=== PATIENT | male | born 1970 | race Caucasian/White ===

== ENCOUNTER 2017-02-27 10:09 | Emergency (ER) | payer BC ==
[2017-02-27 10:16] VITALS: BP 142/67
[2017-02-27] MEDS ORDERED: Proparacaine 0.5% Ophth Soln 15 ML Bottle EYERT ONE (10:33)
[2017-02-27] MEDS ORDERED: Benoxinate/Fluorescein 0.4-0.25% Ophth Soln 5 ML Bottle EYERT ONE (10:34)
--- NOTE | 2017-02-27 10:59 | EDM.PDOC ---
ED HPI GENERAL MEDICAL PROBLEM - General Chief Complaint: Eye Problems Stated Complaint: FB IN RIGHT EYE Time Seen by Provider: 02/27/17 10:22 Source of Information: Reports: Patient History Limitations: Reports: No Limitations - History of Present Illness INITIAL COMMENTS - FREE TEXT/NARRATIVE: The patient presents with right eye FB. The patient was out working on his truck and week eating yesterday. His eye was irritated through the night. He has no vision changes. Onset: Gradual Duration: Day(s): (Yesterday) Location: Reports: Face (Right eye) Quality: Reports: Ache Severity: Moderate Improves with: Reports: None Worsens with: Reports: None Associated Symptoms: Reports: No Other Symptoms Right Eye Pain Score (Numeric/FACES): 1 - Related Data Allergies Allergy/AdvReac Type Severity Reaction Status Date / Time No Known Allergies Allergy Verified 02/27/17 10:16 Home Meds: Home Meds Ciprofloxacin [IJD: Ciloxan 0.3% Ophth Soln] 1 drop EYERT .EVERY 4 HOURS #5 ml 02/27/17 [Rx] Past Medical History - Past Surgical History HEENT Surgical History: Reports: Tonsillectomy GI Surgical History: Reports: Appendectomy ED ROS GENERAL - Review of Systems Review Of Systems: See Below Constitutional: Reports: No Symptoms HEENT: Reports: Eye Pain Respiratory: Reports: No Symptoms Cardiovascular: Reports: No Symptoms Endocrine: Reports: No Symptoms GI/Abdominal: Reports: No Symptoms : Reports: No Symptoms Musculoskeletal: Reports: No Symptoms Skin: Reports: No Symptoms ED EXAM GENERAL W FULL EYE - Physical Exam Exam: See Below Exam Limited By: No Limitations General Appearance: Alert, No Apparent Distress Eye Exam: Right Eye: Conjunctival Injection, Corneal Abrasion, Foreign Body ( Rust ring), Bilateral Eye: PERRL Visual Acuity (R) 20/: 20 Visual Acuity (L) 20/: 30 With Correction: No Eyelids: Bilateral: Normal Appearance Conjunctiva & Sclera: Right: Conjunctival Edema Cornea Exam: Right: Corneal Abrasion, Foreign Body (Rust ring) Extraocular Movements: Bilateral: Intact Pupillary Size: Bilateral: 4 mm Pupillary Reaction: Bilateral: Brisk ED EYE w/ Add Procedure - Eye Procedure Alcaine Drops Administered: Yes Eye FB Removal: Other (Removed rust ring with drill) Course - Vital Signs Last Recorded V/S: Last Vital Signs Temp 97.2 F 02/27/17 10:12 Pulse 71 02/27/17 10:12 Resp 16 02/27/17 10:12 BP 142/67 H 02/27/17 10:12 Pulse Ox 98 02/27/17 10:12 - Orders/Labs/Meds Meds: Medications Discontinued Medications Generic Name Dose Route Start Last Admin Trade Name Laisha PRN Reason Stop Dose Admin Fluorescein Sodium/Benoxinate HCl 1 ml 02/27/17 10:34 Fluress Ophth Soln EYERT 02/27/17 10:35 ONETIME ONE Proparacaine HCl 1 ml 02/27/17 10:33 Proparacaine 0.5% Ophth Soln EYERT 02/27/17 10:34 ONETIME ONE - Re-Assessments/Exams Free Text/Narrative Re-Assessment/Exam: 02/27/17 11:00 The FB was removed by the clinic. I used our eye drill to remove the rust ring. I will get him on some cipro drops and some hydrocodone for pain. Departure - Departure Time of Disposition: 11:05 Disposition: Home, Self-Care 01 Condition: good Clinical Impression: Corneal rust ring of right eye Corneal abrasion Qualifiers: Encounter type: initial encounter Laterality: right Qualified Code(s): S05.01XA - Injury of conjunctiva and corneal abrasion without foreign body, right eye, initial encounter Corneal FB (foreign body) Qualifiers: Encounter type: initial encounter Laterality: right Qualified Code(s): T15.01XA - Foreign body in cornea, right eye, initial encounter - Discharge Information Prescriptions: Ciprofloxacin [IJD: Ciloxan 0.3% Ophth Soln] 1 drop EYERT .EVERY 4 HOURS #5 ml Forms: ED Department Discharge Additional Instructions: Use the cipro drops 1 drop in the right eye every 4 hours while awake for 2 days. Take the hydrocodone as needed for pain. Follow up with an eye doctor in [facility] if you are not better in 3 days.
== END 2017-02-27 11:15 | disposition home or self-care (01) ==
LOC: JD.ED 10:09
DX: T15.01XA Foreign body in cornea, right eye, initial encounter (principal); Z98.890 Other specified postprocedural states; Z90.49 Acquired absence of other specified parts of digestive tract; X58.XXXA Exposure to other specified factors, initial encounter
CPT/HCPCS: 65220; 99283; 99283-25

== ENCOUNTER 2017-08-08 09:27 | Emergency (ER) | payer OTHER, BC ==
[2017-08-08 09:39] VITALS: BP 144/79
[2017-08-08] MEDS ORDERED: Sodium Chloride 0.9% 1,000 ML IRR ONE (10:30)
[2017-08-08] MEDS ORDERED: Sodium Chloride 0.9% 1,000 ML IV ONE (11:47)
--- NOTE | 2017-08-08 11:48 | EDM.PDOC ---
ED HPI GENERAL MEDICAL PROBLEM - General Chief Complaint: Eye Problems Stated Complaint: ACID IN R EYE Time Seen by Provider: 08/08/17 09:51 Source of Information: Reports: Patient, RN Notes Reviewed - History of Present Illness INITIAL COMMENTS - FREE TEXT/NARRATIVE: 46-year-old male comes and having had acid splatter to the right eye. He does drive cement truck. He was cleaning his truck with an acid-based solution. Somehow some of this did manage to splatter under ejective eyewear with contact to the right eye. He was able to wash the eye right away with water. He does have continued moderate irritation and discomfort of the right eye. No other pain or injury from this incident. Right Eye Pain Score (Numeric/FACES): 4 - Related Data Allergies Allergy/AdvReac Type Severity Reaction Status Date / Time No Known Allergies Allergy Verified 08/08/17 09:40 Home Meds: Home Meds . [No Known Home Meds] 08/08/17 [History] Past Medical History - Past Surgical History HEENT Surgical History: Reports: Tonsillectomy GI Surgical History: Reports: Appendectomy Social & Family History - Tobacco Use Smoking Status *Q: Never Smoker - Caffeine Use Caffeine Use: Reports: Coffee - Recreational Drug Use Recreational Drug Use: No ED ROS GENERAL - Review of Systems Review Of Systems: See Below Constitutional: Reports: No Symptoms HEENT: Reports: Eye Pain Respiratory: Denies: Shortness of Breath, Wheezing Cardiovascular: Denies: Chest Pain GI/Abdominal: Denies: Abdominal Pain, Nausea, Vomiting Musculoskeletal: Reports: No Symptoms Skin: Reports: No Symptoms, Other (No skin discomfort). Denies: Rash, Erythema Neurological: Denies: Numbness, Tingling ED EXAM GENERAL W FULL EYE - Physical Exam Exam: See Below General Appearance: Alert, No Apparent Distress Eye Exam: Right Eye: Conjunctival Injection (Mild to moderate right-sided), Bilateral Eye: PERRL Visual Acuity (R) 20/: 40 Visual Acuity (L) 20/: 20 Cornea Exam: Bilateral: Normal Appearance Extraocular Movements: Bilateral: Intact Pupils: Normal Accommodation Anterior Chamber: Bilateral: Normal Appearance Throat/Mouth: Normal Inspection Head: Atraumatic. No: Facial Swelling Neck: Supple Respiratory/Chest: No Respiratory Distress, Lungs Clear Cardiovascular: Regular Rate, Rhythm Neurological: Alert, Oriented, No Motor/Sensory Deficits Skin Exam: Warm, Dry, Normal Color, No Rash, Other (No area of injury to the face). No: Erythema Course - Vital Signs Last Recorded V/S: Last Vital Signs Temp 98.1 F 08/08/17 09:34 Pulse 66 08/08/17 09:34 Resp 13 08/08/17 09:34 BP 144/79 H 08/08/17 09:34 Pulse Ox 97 08/08/17 09:34 - Orders/Labs/Meds Orders: Active Orders 24 hr Category Date Time Status Eye Irrigation [RC] ASDIRECTED Care 08/08/17 10:00 Active Meds: Medications Discontinued Medications Generic Name Dose Route Start Last Admin Trade Name Freq PRN Reason Stop Dose Admin Sodium Chloride 1,000 mls @ 999 mls/hr 08/08/17 11:47 08/08/17 11:58 Normal Saline IV 08/08/17 12:47 999 mls/hr ONETIME ONE Administration - Re-Assessments/Exams Free Text/Narrative Re-Assessment/Exam: 08/08/17 17:54. I was irrigated with 500 mL normal saline 2, he continued to have very mild eye irritation status post irrigation. No evidence for corneal injury. Discharge instructions as documented Departure - Departure Time of Disposition: 11:46 Disposition: Home, Self-Care 01 Condition: Fair Clinical Impression: Conjunctivitis Qualifiers: Conjunctivitis type: acute Acute conjunctivitis type: unspecified Laterality: right Qualified Code(s): H10.31 - Unspecified acute conjunctivitis, right eye - Discharge Information Instructions: Chemical Conjunctivitis, [id number] Referrals: PCP,None [Primary Care Provider] - Forms: ED Department Discharge, ED Return to Work/School Form Additional Instructions: Rest I, it is expected that the inflamation will clear over the next 24-48 hours, you may alternate Tylenol and ibuprofen if needed, see eye doctor if symptoms have not completely resolved by Tuesday as planned, return to ED if symptoms worsening in any way. - My Orders Last 24 Hours: My Active Orders 08/08/17 10:00 Eye Irrigation [RC] ASDIRECTED - Assessment/Plan Last 24 Hours: My Active Orders 08/08/17 10:00 Eye Irrigation [RC] ASDIRECTED
== END 2017-08-08 11:57 | disposition home or self-care (01) ==
LOC: JD.ED 09:27
DX: H10.31 Unspecified acute conjunctivitis, right eye (principal)
CPT/HCPCS: 99283; J7040

== ENCOUNTER 2021-03-29 22:25 | Emergency (ER) | payer BC, OTHER ==
[2021-03-29 22:35] VITALS: BP 162/92; PULSE 71
--- NOTE | 2021-03-29 23:08 | EDM.PDOC ---
ED HPI GENERAL MEDICAL PROBLEM - General Chief Complaint: Eye Problems Stated Complaint: SOMETHING IN LEFT EYE Time Seen by Provider: 03/29/21 22:43 Source of Information: Reports: Patient, RN Notes Reviewed - History of Present Illness INITIAL COMMENTS - FREE TEXT/NARRATIVE: FB sensation L eye. Was working out doors with weed eater yesterday, no sx at that time. Also did do some recent grinding but also no sx at that time. Does not wear contacts. Left Eye Pain Score (Numeric/FACES): 10 - Related Data Allergies Allergy/AdvReac Type Severity Reaction Status Date / Time No Known Allergies Allergy Verified 03/29/21 22:35 Home Meds: Home Meds . [No Known Home Meds] 08/08/17 [History] Past Medical History - Past Surgical History HEENT Surgical History: Reports: Tonsillectomy GI Surgical History: Reports: Appendectomy Social & Family History - Tobacco Use Tobacco Use Status *Q: Never Tobacco User - Caffeine Use Caffeine Use: Reports: Coffee, Soda, Tea - Recreational Drug Use Recreational Drug Use: No ED ROS GENERAL - Review of Systems Review Of Systems: See Below Constitutional: Reports: No Symptoms HEENT: Reports: Other (FB sensation, discomfort L eye) Respiratory: Reports: No Symptoms Cardiovascular: Reports: No Symptoms GI/Abdominal: Reports: No Symptoms Skin: Reports: No Symptoms Neurological: Reports: No Symptoms ED EXAM GENERAL W FULL EYE - Physical Exam Exam: See Below General Appearance: Alert, No Apparent Distress Eye Exam: Bilateral Eye: PERRL Eyelids: Bilateral: Normal Appearance Conjunctiva & Sclera: Left: Injected (mild) Cornea Exam: Left: Foreign Body (small, dark, mid cornea) Pupils: Normal Accommodation Pupillary Reaction: Bilateral: Brisk Head: Atraumatic Neck: Supple Respiratory/Chest: No Respiratory Distress Neurological: Alert, Oriented, No Motor/Sensory Deficits Skin Exam: Warm, Dry, Normal Color, No Rash ED EYE w/ Add Procedure - Eye Procedure Alcaine Drops Administered: Yes Eye FB Removal: Other (eye spud) Progress: Small metallic FB removed with eye spud. He does have an underlying rust ring central L cornea. because that is so close to the center of his cornea I am recomending that he have removal of that in a day or 2 by his regular Special Needs Babysitter. Discharge instr. as documented. Course - Vital Signs Last Recorded V/S: Last Vital Signs Temp 97.2 F 03/29/21 22:33 Pulse 71 03/29/21 22:33 Resp 16 03/29/21 22:33 BP 162/92 H 03/29/21 22:33 Pulse Ox 97 03/29/21 22:33 Departure - Departure Time of Disposition: 23:05 Disposition: Home, Self-Care 01 Condition: Fair Clinical Impression: Foreign body, eye Qualifiers: Encounter type: initial encounter Laterality: left Qualified Code(s): T15.92XA - Foreign body on external eye, part unspecified, left eye, initial encounter - Discharge Information Instructions: Eye Foreign Body, [id number] Referrals: PCP,None [Primary Care Provider] - Forms: ED Department Discharge Additional Instructions: Tylenol or ibuprofen as needed. See your Special Needs Babysitter tomorrow or Tuesday to get rust ring removed. Call in AM for appointment. Because that is in the center part of your cornea that could interfer with your visual acuity if not removed. Return to ED as needed if unable to get that done. Sepsis Event Note (ED) - Evaluation Sepsis Screening Result: No Definite Risk - Focused Exam Vital Signs: Vital Signs Temp Pulse Resp BP Pulse Ox 03/29/21 22:33 97.2 F 71 16 162/92 H 97
== END 2021-03-29 23:34 | disposition home or self-care (01) ==
LOC: JD.ED 22:25
DX: T15.02XA Foreign body in cornea, left eye, initial encounter (principal)
CPT/HCPCS: 65205; 65220; 99282; 99283-25

== ENCOUNTER 2021-08-11 09:22 | Emergency (ER) | payer OTHER ==
[2021-08-11 09:50] VITALS: BP 141/76; PULSE 84
[2021-08-11] MEDS ORDERED: Ondansetron 4 MG/2 ML SDV IVPUSH ONE (10:01)
[2021-08-11] MEDS ORDERED: Sodium Chloride 0.9% 10 ML Syringe FLUSH PRN (10:01)
[2021-08-11] MEDS ORDERED: Ketorolac 30 MG/ML SDV IVPUSH ONE (10:03)
[2021-08-11] MEDS ORDERED: Sodium Chloride 0.9% 1,000 ML IV SCH (10:15)
--- NOTE | 2021-08-11 10:17 | EDM.PDOC ---
ED HPI GENERAL MEDICAL PROBLEM - General Chief Complaint: Respiratory Problem Stated Complaint: COVID+ LOW OXYGEN\COUGH\VOMITING Time Seen by Provider: 08/11/21 09:43 Source of Information: Reports: Patient History Limitations: Reports: No Limitations - History of Present Illness INITIAL COMMENTS - FREE TEXT/NARRATIVE: The patient presents with COVID 19, shortness of breath, cough, body aches and generalized weakness. He was diagnosed with COVID 19 on the but he started having symptoms 11 days ago. He is not able to eat or drink anything. He has nausea but no vomiting. He has diarrhea. He has no medical problems like asthma, COPD, heart disease, hypertension or hypercholesterolemia. He does not smoke. His oxygen saturations were in the 80s. Onset: Gradual Duration: Day(s): (11) Location: Reports: Generalized Quality: Reports: Ache Severity: Moderate Improves with: Reports: None Worsens with: Reports: None Associated Symptoms: Reports: Cough, Fever/Chills, Nausea/Vomiting, Shortness of Breath. Denies: Chest Pain, Headaches Generalized Pain Score (Numeric/FACES): 10 - Related Data Allergies Allergy/AdvReac Type Severity Reaction Status Date / Time No Known Allergies Allergy Verified 03/29/21 22:35 Home Meds: Home Meds Albuterol [Proventil HFA] 2 puff INH Q4H PRN #1 inhaler 08/11/21 [Rx] Codeine/Promethazine [Phenergan with Codeine] 5 - 10 ml PO Q6HR PRN #300 ml 08/11/21 [Rx] Ondansetron [Zofran ODT] 4 mg PO Q6H PRN #20 tab.dis 08/11/21 [Rx] dexAMETHasone [Dexamethasone] 6 mg PO Q6H #12 tab 08/11/21 [Rx] Past Medical History - Past Surgical History HEENT Surgical History: Reports: Tonsillectomy GI Surgical History: Reports: Appendectomy Social & Family History - Caffeine Use Caffeine Use: Reports: Coffee, Soda, Tea ED ROS GENERAL - Review of Systems Review Of Systems: See Below Constitutional: Reports: Fever, Chills, Malaise, Weakness, Fatigue HEENT: Reports: No Symptoms Respiratory: Reports: Shortness of Breath, Cough Cardiovascular: Reports: No Symptoms Endocrine: Reports: No Symptoms GI/Abdominal: Reports: Diarrhea, Nausea. Denies: Abdominal Pain, Vomiting : Reports: No Symptoms Musculoskeletal: Reports: Muscle Pain ED EXAM, GENERAL - Physical Exam Exam: See Below Exam Limited By: No Limitations General Appearance: Alert, No Apparent Distress Ears: Normal External Exam Nose: Normal Inspection Head: Atraumatic, Normocephalic Neck: Normal Inspection Respiratory/Chest: No Respiratory Distress, Decreased Breath Sounds Cardiovascular: Regular Rate, Rhythm, No Edema, No Murmur GI/Abdominal: Soft, Non-Tender, No Organomegaly, No Mass Back Exam: Normal Inspection Course - Vital Signs Last Recorded V/S: Last Vital Signs Temp 98.5 F 08/11/21 09:41 Pulse 84 08/11/21 09:41 Resp 18 08/11/21 09:41 BP 141/76 H 08/11/21 09:41 Pulse Ox 88 L 08/11/21 11:55 - Orders/Labs/Meds Orders: Active Orders 24 hr Category Date Time Status Cardiac Monitoring [RC] . DIRECTED Care 08/11/21 10:01 Active Oxygen Therapy [RC] PRN Care 08/11/21 10:01 Active Peripheral IV Care [RC] . DIRECTED Care 08/11/21 10:01 Active Sodium Chloride 0.9% [Normal Saline] 1,000 ml Med 08/11/21 10:15 Active IV .BOLUS Sodium Chloride 0.9% [Saline Flush] Med 08/11/21 10:01 Active 10 ml FLUSH ASDIRECTED PRN ED Antiemetic Medication Reflex [OM.PC] Stat Oth 08/11/21 10:02 Ordered Peripheral IV Insertion Adult [OM.PC] Stat Oth 08/11/21 10:01 Ordered Medication Orders Sodium Chloride (Normal Saline) 1,000 mls @ 1,000 mls/hr IV .BOLUS RUSTAM Last Admin: 08/11/21 10:21 Dose: 1,000 mls/hr Documented by: MUMTAZ Sodium Chloride (Sodium Chloride 0.9% 10 Ml Syringe) 10 ml FLUSH ASDIRECTED PRN PRN Reason: Keep Vein Open Last Admin: 08/11/21 10:21 Dose: 10 ml Documented by: MUMTAZ Labs: Laboratory Tests 08/11/21 08/11/21 08/11/21 Range/Units 10:18 10:18 10:18 WBC 5.85 (4.23-9.07) K/mm3 RBC 4.85 (4.63-6.08) M/mm3 Hgb 15.6 (13.7-17.5) gm/dl Hct 46.2 (40.1-51.0) % MCV 95.3 H (79.0-92.2) fl MCH 32.2 (25.7-32.2) pg MCHC 33.8 (32.2-35.5) g/dl RDW Std Deviation 42.3 (35.1-43.9) fL Plt Count 229 (163-337) K/mm3 MPV 9.5 (9.4-12.3) fl Neut % (Auto) 72.9 H (34.0-67.9) % Lymph % (Auto) 15.9 L (21.8-53.1) % [place] % (Auto) 10.8 (5.3-12.2) % Eos % (Auto) 0.2 L (0.8-7.0) Baso % (Auto) 0.2 (0.1-1.2) % Neut # (Auto) 4.27 (1.78-5.38) K/mm3 Lymph # (Auto) 0.93 L (1.32-3.57) K/mm3 [place] # (Auto) 0.63 (0.30-0.82) K/mm3 Eos # (Auto) 0.01 L (0.04-0.54) K/mm3 Baso # (Auto) 0.01 (0.01-0.08) K/mm3 PT 10.8 (9.7-12.0) SECONDS INR 0.97 APTT 29.3 (21.7-31.4) SECONDS D-Dimer, Quantitative 0.96 H (0.19-0.50) mg/L Sodium 135 L (136-145) mEq/L Potassium 4.1 (3.5-5.1) mEq/L Chloride 101 (98-107) mEq/L Carbon Dioxide 27 (21-32) mEq/L Anion Gap 11.1 (5-15) BUN 14 (7-18) mg/dL Creatinine 1.3 (0.7-1.3) mg/dL Est Cr Clr Drug Dosing TNP Estimated GFR (MDRD) 58 (>60) mL/min BUN/Creatinine Ratio 10.8 L (14-18) Glucose 110 H (70-99) mg/dL Lactic Acid (0.4-2.0) mmol/L Calcium 9.0 (8.5-10.1) mg/dL Total Bilirubin 0.6 (0.2-1.0) mg/dL AST 44 H (15-37) U/L ALT 67 H (16-63) U/L Alkaline Phosphatase 50 (46-116) U/L C-Reactive Protein 12.0 H* (<1.0) mg/dL NT-Pro-B Natriuret Pep (0-125) pg/mL Total Protein 7.6 (6.4-8.2) g/dl Albumin 3.4 (3.4-5.0) g/dl Globulin 4.2 gm/dL Albumin/Globulin Ratio 0.8 L (1-2) 08/11/21 08/11/21 Range/Units 10:18 10:18 WBC (4.23-9.07) K/mm3 RBC (4.63-6.08) M/mm3 Hgb (13.7-17.5) gm/dl Hct (40.1-51.0) % MCV (79.0-92.2) fl MCH (25.7-32.2) pg MCHC (32.2-35.5) g/dl RDW Std Deviation (35.1-43.9) fL Plt Count (163-337) K/mm3 MPV (9.4-12.3) fl Neut % (Auto) (34.0-67.9) % Lymph % (Auto) (21.8-53.1) % [place] % (Auto) (5.3-12.2) % Eos % (Auto) (0.8-7.0) Baso % (Auto) (0.1-1.2) % Neut # (Auto) (1.78-5.38) K/mm3 Lymph # (Auto) (1.32-3.57) K/mm3 [place] # (Auto) (0.30-0.82) K/mm3 Eos # (Auto) (0.04-0.54) K/mm3 Baso # (Auto) (0.01-0.08) K/mm3 PT (9.7-12.0) SECONDS INR APTT (21.7-31.4) SECONDS D-Dimer, Quantitative (0.19-0.50) mg/L Sodium (136-145) mEq/L Potassium (3.5-5.1) mEq/L Chloride (98-107) mEq/L Carbon Dioxide (21-32) mEq/L Anion Gap (5-15) BUN (7-18) mg/dL Creatinine (0.7-1.3) mg/dL Est Cr Clr Drug Dosing Estimated GFR (MDRD) (>60) mL/min BUN/Creatinine Ratio (14-18) Glucose (70-99) mg/dL Lactic Acid 1.2 (0.4-2.0) mmol/L Calcium (8.5-10.1) mg/dL Total Bilirubin (0.2-1.0) mg/dL AST (15-37) U/L ALT (16-63) U/L Alkaline Phosphatase (46-116) U/L C-Reactive Protein (<1.0) mg/dL NT-Pro-B Natriuret Pep 31 (0-125) pg/mL Total Protein (6.4-8.2) g/dl Albumin (3.4-5.0) g/dl Globulin gm/dL Albumin/Globulin Ratio (1-2) Meds: Medications Generic Name Dose Route Start Last Admin Trade Name Freq PRN Reason Stop Dose Admin Sodium Chloride 1,000 mls @ 1,000 mls/hr 08/11/21 10:15 08/11/21 10:21 Normal Saline IV 1,000 mls/hr .BOLUS RUSTAM Administration Sodium Chloride 10 ml 08/11/21 10:01 08/11/21 10:21 Sodium Chloride 0.9% 10 Ml Syringe FLUSH 10 ml ASDIRECTED PRN Administration Keep Vein Open Discontinued Medications Generic Name Dose Route Start Last Admin Trade Name Freq PRN Reason Stop Dose Admin Ketorolac Tromethamine 30 mg 08/11/21 10:03 08/11/21 10:21 Ketorolac 30 Mg/Ml Sdv IVPUSH 08/11/21 10:04 30 mg ONETIME ONE Administration Ondansetron HCl 4 mg 08/11/21 10:01 08/11/21 10:22 Ondansetron 4 Mg/2 Ml Sdv IVPUSH 08/11/21 10:02 4 mg ONETIME ONE Administration - Re-Assessments/Exams Free Text/Narrative Re-Assessment/Exam: 08/11/21 10:18 I ordered an IV NS 1L bolus, zofran 4mg IV, toradol 30mg IV, labs, and CXR. 08/11/21 11:47 His CXR shows some mild COVID pneumonia. His CBC looks good. His D-dimer was slightly elevated at 0.96. His lactic acid is negative. His AST is elevated at 44. His ALT is elevated at 67. His CRP is elevated at 12. 08/11/21 11:59 His oxygen saturations did fall to 88%. That will qualify him for home oxygen. I have written the order. I will get him on dexamethasone, albuterol inhaler and phenergan with codeine for the cough. Departure - Departure Time of Disposition: 12:00 Disposition: Home, Self-Care 01 Condition: Good Clinical Impression: Pneumonia due to COVID-19 virus - Discharge Information *PRESCRIPTION DRUG MONITORING PROGRAM REVIEWED*: Not Applicable *COPY OF PRESCRIPTION DRUG MONITORING REPORT IN PATIENT ELIZABETH: Not Applicable Prescriptions: dexAMETHasone [Dexamethasone] 6 mg PO Q6H #12 tab Codeine/Promethazine [Phenergan with Codeine] 5 - 10 ml PO Q6HR PRN #300 ml PRN Reason: Cough Albuterol [Proventil HFA] 2 puff INH Q4H PRN #1 inhaler PRN Reason: Shortness Of Breath Ondansetron [Zofran ODT] 4 mg PO Q6H PRN #20 tab.dis PRN Reason: Nausea\vomiting Referrals: Laureen Frank MD [Primary Care Provider] - 1 Week Forms: ED Department Discharge Additional Instructions: Wear the oxygen as much as you can especially at night. Take the dexamethasone 1.5 pills daily until gone. Take the zofran every 6 hours as needed for nausea and vomiting. Drink plenty of fluids. Use the inhaler 2 puffs every 6 hours as needed for shortness of breath. Take the penergan with codeine 5 to 10mls by mouth every 6 hours as needed for cough. Please return if you are worse. Sepsis Event Note (ED) - Evaluation Sepsis Screening Result: No Definite Risk - Focused Exam Vital Signs: Vital Signs Temp Pulse Resp BP Pulse Ox 08/11/21 11:55 88 L 08/11/21 09:41 98.5 F 84 18 141/76 H 92 L - My Orders Last 24 Hours: My Active Orders 08/11/21 10:01 Cardiac Monitoring [RC] . DIRECTED Oxygen Therapy [RC] PRN Peripheral IV Care [RC] . DIRECTED Sodium Chloride 0.9% [Saline Flush] 10 ml FLUSH ASDIRECTED PRN Peripheral IV Insertion Adult [OM.PC] Stat 08/11/21 10:02 ED Antiemetic Medication Reflex [OM.PC] Stat 08/11/21 10:15 Sodium Chloride 0.9% [Normal Saline] 1,000 ml IV .BOLUS - Assessment/Plan Last 24 Hours: My Active Orders 08/11/21 10:01 Cardiac Monitoring [RC] . DIRECTED Oxygen Therapy [RC] PRN Peripheral IV Care [RC] . DIRECTED Sodium Chloride 0.9% [Saline Flush] 10 ml FLUSH ASDIRECTED PRN Peripheral IV Insertion Adult [OM.PC] Stat 08/11/21 10:02 ED Antiemetic Medication Reflex [OM.PC] Stat 08/11/21 10:15 Sodium Chloride 0.9% [Normal Saline] 1,000 ml IV .BOLUS
--- NOTE | 2021-08-11 11:36 | CR ---
Chest: Portable view of the chest was obtained. Comparison: No prior chest x-ray is available. Heart size and mediastinum are within normal limits for portable technique. Small parenchymal density is seen within the right upper chest. Mild density is noted within the left lower chest. Bony structures show nothing acute. Impression: 1. Slight parenchymal densities, please correlate if patient has any symptoms of COVID. Findings otherwise could represent areas of atelectasis as well as small areas of pneumonia. 2. Portable chest x-ray is otherwise unremarkable. Diagnostic code #3
== END 2021-08-11 13:23 | disposition home or self-care (01) ==
LOC: JD.ED 09:22
DX: U07.1 COVID-19 (principal); J12.82 Pneumonia due to coronavirus disease 2019
CPT/HCPCS: 36415; 71045; 71045-26; 80053; 83605; 83880; 85025; 85379; 85610; 85730; 86140; 96374; 96375; 99285; 99285-25; J1885; J2405; J7030

== ENCOUNTER 2022-11-02 14:06 | Emergency (ER) | payer OTHER ==
[2022-11-02 14:23] VITALS: BP 160/90; PULSE 80
== END 2022-11-02 15:42 | disposition home or self-care (01) ==
LOC: JD.ED 14:06
DX: J01.41 Acute recurrent pansinusitis (principal); Z87.891 Personal history of nicotine dependence; Z86.16 Personal history of COVID-19
CPT/HCPCS: 99283

== ENCOUNTER 2024-01-17 16:46 | Emergency (ER) | payer OTHER ==
[2024-01-17] MEDS: Sodium Chloride 0.9% 1,000 ML IV ONE (19:01)
[2024-01-17 19:11] LABS: BASOPHILS PERCENT AUTO 0.4 % (0.0-1.0); EOSINOPHILS ABSOLUTE AUTO 0.2 K/mm3 (0.0-0.4); EOSINOPHILS PERCENT AUTO 1.9 % (0.0-6.0); HEMATOCRIT 49.2 % (42.0-52.0); HEMOGLOBIN 17.1 gm/dl (14.0-18.0); IMMATURE GRAN ABSOLUTE AUTO 0.03 K/mm3 (0.00-0.05); IMMATURE GRAN PERCENT AUTO 0.3 % (0.0-0.4); LYMPHOCYTES ABSOLUTE AUTO 0.8 K/mm3 (1.0-4.8); LYMPHOCYTES PERCENT AUTO 7.3 % (24.0-44.0); MEAN CORPUSCULAR HEMOGLOBIN 32.9 pg (28.0-32.0); MEAN CORPUSCULAR HGB CONC 34.8 g/dl (32.0-36.0); MEAN CORPUSCULAR VOLUME 94.8 fl (83.0-99.0); MEAN PLATELET VOLUME 9.2 fl (9.4-12.4); MONOCYTES ABSOLUTE AUTO 0.8 K/mm3 (0.0-0.8); MONOCYTES PERCENT AUTO 7.5 % (0.0-8.0); NEUTROPHILS ABSOLUTE AUTO 9.2 K/mm3 (1.8-7.7); NEUTROPHILS PERCENT AUTO 82.6 % (41.0-71.0); PLATELET COUNT,PLT 245 K/mm3 (150-400); RED BLOOD CELL COUNT 5.19 M/mm3 (4.52-5.90); WHITE BLOOD CELL COUNT,WBC 11.17 K/mm3 (3.9-11.3)
[2024-01-17] MEDS: Ketorolac 15 MG/ML SDV IVPUSH ONE (19:48)
[2024-01-17] MEDS: Ondansetron 4 MG/2 ML SDV IVPUSH ONE (19:48)
[2024-01-17 19:52] LABS: A/G RATIO 1.1 (1-2); ALBUMIN 3.9 g/dl (3.4-5.0); ANION GAP 15.2 (5-15); BILIRUBIN TOTAL 0.6 mg/dL (0.2-1.0); BUN/CREATININE RATIO 11.7 (14-18); C-REACTIVE PROTEIN 0.83 mg/dL (<0.30); CALCIUM 9.5 mg/dL (8.5-10.1); CREATININE 1.2 mg/dL (0.7-1.3); EST CRCL DRUG DOSING (CG) 72.66 mL/min; POTASSIUM,K 4.2 mEq/L (3.5-5.1); PROTEIN TOTAL,TP 7.4 g/dl (6.4-8.2)
[2024-01-17] MEDS ORDERED: Iopamidol 755 Mg/ML 100 ML Bottle IVPUSH ONE (20:22)
[2024-01-17] MEDS: Famotidine 20 MG/2 ML SDV IVPUSH ONE (20:25)
[2024-01-17] MEDS: Aluminum Hydroxide/Magnesium Hydroxide/Simethicone Susp 30 ML Cup PO ONE (20:25)
[2024-01-17] MEDS: Iopamidol 612 MG/ML 100 ML Bottle IVPUSH ONE (20:47)
[2024-01-17] MEDS: Sodium Chloride 0.9% 10 ML Syringe FLUSH PRN (20:51)
[2024-01-17] MEDS: Dicyclomine 10 MG Cap PO ONE (22:43)
[2024-01-17 22:47] VITALS: BP 138/76; PULSE 73
== END 2024-01-17 22:50 | disposition home or self-care (01) ==
LOC: JD.ED 16:46
DX: K52.9 Noninfective gastroenteritis and colitis, unspecified (principal); Z79.899 Other long term (current) drug therapy
CPT/HCPCS: 36415; 74177; 74177-26; 80053; 83690; 85025; 86140; 87045; 87046; 87899; 96361; 96374; 96375; 99284; 99284-25; A9270-GY; J1885; J2405; J3490; J7030; Q9967